=== PATIENT | female | born 1965 | race Caucasian/White ===

== ENCOUNTER → 2023-10-18 15:58 | Outpatient (REF) | payer OTHER, SELFPAY | LOC: WDC 15:58 | PROVIDERS: ATTENDING PHYSICIAN Obstetrics & Gynecology Gynecology; FAMILY PHYSICIAN Family Medicine | DX: Z12.31 Encounter for screening mammogram for malignant neoplasm of breast (principal) | CPT/HCPCS: 77063; 77067 ==

== ENCOUNTER → 2023-12-30 14:06 | Outpatient (REF) | payer OTHER, SELFPAY | LOC: RAD 14:06 | PROVIDERS: ATTENDING PHYSICIAN Physician Assistant | DX: R07.89 Other chest pain (principal); R53.83 Other fatigue | CPT/HCPCS: 71046 ==

== ENCOUNTER → 2024-09-12 09:30 | Outpatient (REF) | payer OTHER, SELFPAY | LOC: RAD 09:30 | PROVIDERS: ATTENDING PHYSICIAN Physician Assistant | DX: K21.9 Gastro-esophageal reflux disease without esophagitis (principal); R13.19 Other dysphagia | CPT/HCPCS: 74246 ==

== ENCOUNTER → 2024-10-18 15:51 | Outpatient (REF) | payer OTHER, SELFPAY | LOC: WDC 15:51 | PROVIDERS: ATTENDING PHYSICIAN Nurse Practitioner Adult Health | DX: Z12.31 Encounter for screening mammogram for malignant neoplasm of breast (principal) | CPT/HCPCS: 77063; 77067 ==